=== PATIENT | male | born 1955 | race Caucasian/White ===

== ENCOUNTER 2019-11-10 05:40 | Day surgery (SDC) | payer OTHER, MEDICAID ==
[~2019-11-10] VITALS: Ht 182.9 cm; Wt 108.0 kg
[2019-11-10] MEDS ORDERED: NS IRRIG SOLN 1000 ML IR ONE (12:54)
[2019-11-10] MEDS ORDERED: NS 1000 ML IV.SOLN IV ONE (12:54)
[2019-11-10] MEDS ORDERED: PROPOFOL 200MG/ 20ML VIAL (DIPRIVAN) IV ONE (12:54)
[2019-11-10] MEDS ORDERED: BACITRACIN 1 GM OINT TP ONE (12:54)
[2019-11-10] MEDS ORDERED: LABETALOL 100 MG/ 20ML VIAL ONE (12:54)
[2019-11-10] MEDS ORDERED: HYDROmorphone 2 MG/ML VIAL ONE (12:54)
[2019-11-10] MEDS ORDERED: DESFLURANE 15 MIN GAS INH ONE (12:54)
[2019-11-10] MEDS ORDERED: MUPIROCIN 2% TOPICAL OINTMENT 22 GM ONE (12:54)
[2019-11-10] MEDS ORDERED: ONDANSETRON HCL 4 MG/2 ML VIAL ONE (12:54)
[2019-11-10] MEDS ORDERED: WATER FOR IRRIGATION,STERILE 1,000 ML IRRIG.SOLN IR ONE (12:54)
[2019-11-10] MEDS ORDERED: LR 1,000 ML IV.SOLN IV ONE (12:54)
[2019-11-10] MEDS ORDERED: LIDOCAINE/EPI 1% 1:100000 20 ML VIAL INJ ONE (12:54)
[2019-11-10] MEDS ORDERED: ROCURONIUM BROMIDE 10 MG/ML (ZEMURON) ONE (12:54)
[2019-11-10] MEDS ORDERED: SUCCINYLCHOLINE CHLORIDE 20 MG/ML(QUELICIN) ONE (12:54)
[2019-11-10] MEDS ORDERED: fentaNYL CITRATE/PF 100 MCG/2 ML AMP ONE (12:54)
[2019-11-10] MEDS ORDERED: ONDANSETRON HCL 4 MG/2 ML VIAL IVP PRN (13:00)
[2019-11-10] MEDS ORDERED: HYDROmorphone 1 MG INJ. 1 MG/ML AMPUL IVP PRN (13:00)
[2019-11-10] MEDS ORDERED: HYDROcodone/ACETAMIN 5-325 MG TAB (NORCO/ VICODIN) PO ONE (14:15)
[2019-11-10] MEDS ORDERED: HYDROcodone/ACETAMIN 5-325 MG TAB (NORCO/ VICODIN) ONE (14:28)
[2019-11-10 16:10] VITALS: BP_SYST 154
== END 2019-11-10 16:00 | disposition home or self-care (01) ==
LOC: SMU 05:40 → SDS 05:40 → SMU 07:58 → SDS 16:00
PROVIDERS: ATTEND Otolaryngology
DX: J33.0 Polyp of nasal cavity (principal); J30.1 Allergic rhinitis due to pollen; J32.8 Other chronic sinusitis; J33.8 Other polyp of sinus; J34.89 Other specified disorders of nose and nasal sinuses; I10 Essential (primary) hypertension; D38.5 Neoplasm of uncertain behavior of other respiratory organs; R09.82 Postnasal drip; R43.9 Unspecified disturbances of smell and taste; Z88.6 Allergy status to analgesic agent; E66.3 Overweight
CPT/HCPCS: 31237; 88305; J0330; J1170; J2405; J2704; J3010; J3490; J7030; J7120; 88311; C1726

== ENCOUNTER 2022-05-03 20:41 | Inpatient (IN) | payer MEDICARE, MEDICAID ==
[~2022-05-03] VITALS: Ht 182.9 cm; Wt 73.9 kg
[2022-05-03 20:45] VITALS: BP_SYST 126
--- NOTE | 2022-05-03 20:45 | NUR ---
Patient triaged and placed in the [facility]. VSS and patient appears in no acute distress at this time. Accompanied by EMS, awaiting available bed, and MD notified of need for MSE.
--- NOTE | 2022-05-03 20:46 | NUR ---
ER examining patient in the [address].
[2022-05-03 21:55] LABS: BASOPHILS # (AUTO) 0.1 K/uL (0.0-0.2); BASOPHILS % (AUTO) 0.3 % (0.0-2.0); EOSINOPHILS % (AUTO) 0.1 % (0.0-4.0); HEMATOCRIT 48.8 % (36-54); LYMPHOCYTES # (AUTO) 1.6 K/uL (1.0-5.5); LYMPHOCYTES % (AUTO) 6.4 % (20.5-51.5); MEAN CORPUSCULAR HEMOGLOBIN 30 pg (27-31); MEAN CORPUSCULAR HGB CONC 35 % (32-36); MEAN CORPUSCULAR VOLUME 87 fL (79.0-98.0); MONOCYTES # (AUTO) 1.8 K/uL (0.0-1.0); MONOCYTES % (AUTO) 7.3 % (1.7-9.3); NEUTROPHILS # (AUTO) 21.7 K/uL (1.8-7.7); NEUTROPHILS % (AUTO) 85.9 % (40.0-70.0); PLATELET COUNT (AUTO) 378 K/uL (130-430); RED BLOOD CELL COUNT(AUTO) 5.62 MIL/uL (4.2-6.2); RED CELL DISTRIBUTION WIDTH 14.4 % (9.0-15.0); WHITE BLOOD COUNT (AUTO) 25.2 K/uL (4.8-10.8)
[2022-05-03 22:07] LABS: ANION GAP 11 (5-15); CALCIUM 8.2 mg/dL (8.4-11.0); CHLORIDE 100 mmol/L (98-107); CREATININE 1.68 mg/dL (0.55-1.30); GLUCOSE 154 mg/dL (70-99); POTASSIUM 3.6 mmol/L (3.5-5.1); SODIUM SERUM 135 mmol/L (136-145); UREA NITROGEN, BLOOD 30 mg/dL (8-21)
[2022-05-03 22:09] LABS: GFR AFRICAN AMERICAN 52 mL/min (>90)
[2022-05-03 22:22] LABS: ALANINE AMINOTRANSFERASE 20 U/L (12-78); ALBUMIN 3.8 g/dL (3.4-4.8); ASPARTATE AMINOTRANSFERASE 17 U/L (10-37); TOTAL BILIRUBIN 0.9 mg/dL (0.0-1.0)
--- NOTE | 2022-05-03 22:28 | NUR ---
Placed in room 8 . Placed on satellite project site monitor, blood pressure machine and pulse oximeter. To gown for exam. Side rails up. Report given to Pablo CREWS.
--- NOTE | 2022-05-03 22:40 | NUR ---
[address]IR[address] Way at bedside examining patient.
[2022-05-03] MEDS ORDERED: PANTOPRAZOLE SODIUM 40 MG/VIAL (PROTONIX) IVP ONE (22:45)
[2022-05-03] MEDS ORDERED: MORPHINE 4 MG INJ. 4 MG/ML VIAL IVP ONE (22:45)
[2022-05-03] MEDS ORDERED: PROCHLORPERAZINE EDISYLATE 10 MG/2 ML VIAL IVP ONE (22:45)
[2022-05-04] MEDS ORDERED: VANCOMYCIN HCL 1,000 MG in NS 250 ML IV ONE ×2
[2022-05-04] MEDS ORDERED: PIPERACILLIN/TAZO 3.375 GM in NS 50 ML IV ONE ×2
[2022-05-04] MEDS ORDERED: PROCHLORPERAZINE EDISYLATE 10 MG/2 ML VIAL IVP ONE (00:45)
[2022-05-04] MEDS ORDERED: HYDROmorphone 1 MG/ML INJ. CARTRIDGE IVP ONE (00:45)
[2022-05-04] MEDS ORDERED: PIPERACILLIN/TAZOBACTAM 3.375 GM/VIAL (ZOSYN) IV ONE (01:04)
[2022-05-04] MEDS ORDERED: VANCOMYCIN HCL 1000 MG/VIAL IV ONE ×2 (01:29→01:31)
[2022-05-04 02:14] LABS: BILIRUBIN,URINE 1+ (NEGATIVE); CLARITY/URINE CLEAR (CLEAR); COLOR,URINE BROWN (YELLOW); GLUCOSE,URINE NEGATIVE (NEGATIVE); KETONES,URINE TRACE (NEGATIVE); LEUKOCYTE ESTERASE ,URINE NEGATIVE (NEGATIVE); NITRITE, URINE NEGATIVE (NEGATIVE); PROTEIN URINE 1+ (NEGATIVE); UROBILINOGEN,URINE 0.2 (0.2-1.0)
[2022-05-04 02:18] LABS: BLOOD, URINE TRACE (NEGATIVE)
[2022-05-04 02:56] LABS: BACTERIA,URINE FEW /HPF (None Seen)
[2022-05-04 02:57] LABS: MUCUS,URINE 2+ /LPF (None Seen)
[2022-05-04] MEDS ORDERED: PANTOPRAZOLE SODIUM 40 MG/VIAL (PROTONIX) IVP ONE (04:15)
[2022-05-04] MEDS ORDERED: MORPHINE 4 MG INJ. 4 MG/ML VIAL IVP PRN (04:15)
[2022-05-04] MEDS ORDERED: NACL 0.9% 1,000 ML IV ONE ×3 (04:15)
[2022-05-04] MEDS ORDERED: ONDANSETRON HCL 4 MG/2 ML VIAL IVP PRN (04:15)
--- NOTE | 2022-05-04 04:15 | NUR ---
Patient will be admitted to care of . Admitted to [TELE] unit. Diagnosis [SEPSIS] Inpatient (Yes or No) [Y] Observation (Yes or No) [N] Orientation concerns or request close to nursing station (Yes or No) [N] Covid Status [NEG] On vent or bipap [N] Isolation requirements [N] Needs a sitter [N] From Home (Yes or if No enter name of facility) [HOME] Requires Dialysis (Yes or No) [NO] Med Rec Completed (Yes of No) [NO]Admit bed requested
--- NOTE | 2022-05-04 07:15 | NUR ---
Report received from Pablo CREWS to assume care of patient.
[2022-05-04] MEDS ORDERED: NALOXONE HCL 0.4 MG/ML AMP (NARCAN) IVP PRN (07:30)
--- NOTE | 2022-05-04 07:40 | NUR ---
Pt alert and oriented upon face to face assessment. Reports no pain when asked. VSS on quality assurance monitor final. Pt asking to leave due to needing to handle personal business. Will reach out to admitting MD and continue to monitor closely.
[2022-05-04] MEDS ORDERED: PANTOPRAZOLE SODIUM 40 MG/VIAL (PROTONIX) ONE (07:49)
--- NOTE | 2022-05-04 08:00 | NUR ---
Dr Bates paged to inform that pt wants to leave.
[2022-05-04 08:11] VITALS: BP_SYST 122
--- NOTE | 2022-05-04 08:51 | NUR ---
Patient does not wish to proceed with medical care recommended by Dr Bates. Patient given information related to possible complications, up to and including , which could occur as a result of leaving hospital at this time. Patient verbalizes understanding of risks involved leaving against medical advice. Patient has signed AMA form.
--- NOTE | 2022-05-04 08:52 | NUR ---
New 20G SL to L AC removed prior to dc.
== END 2022-05-04 08:52 | disposition left against medical advice (07) | DRG 313 ==
LOC: SED 20:41 → STU 05-04 04:03
PROVIDERS: ADMIT Family Medicine; ATTEND Family Medicine
DX: R07.9 Chest pain, unspecified (principal); Z20.822 Contact with and (suspected) exposure to COVID-19; Z53.29 Procedure and treatment not carried out because of patient's decision for other reasons; Z88.6 Allergy status to analgesic agent; Z79.899 Other long term (current) drug therapy
CPT/HCPCS: 36415; 71045; 76376; 80053; 81000; 83605; 83690; 84484; 85025; 87040; 87086; 93005; 96365; 96366; 96367; 96375; 99285; C9113; G0378; J0780; J1170; J2270; J2543; J3370; J7030

== ENCOUNTER 2023-01-08 09:39 | Day surgery (SDC) | payer MEDICARE, MEDICAID ==
[~2023-01-08] VITALS: Ht 182.9 cm; Wt 128.0 kg
[2023-01-08] MEDS ORDERED: ROCURONIUM BROMIDE 10 MG/ML (ZEMURON) ONE (12:49)
[2023-01-08] MEDS ORDERED: LIDOCAINE 2%, 20 ML MDV ONE (12:49)
[2023-01-08] MEDS ORDERED: NS IRRIG SOLN 1000 ML IR ONE (12:49)
[2023-01-08] MEDS ORDERED: MUPIROCIN 2% TOPICAL OINTMENT 22 GM ONE (12:49)
[2023-01-08] MEDS ORDERED: PROPOFOL 200MG/ 20ML VIAL (DIPRIVAN) IV ONE (12:49)
[2023-01-08] MEDS ORDERED: NS 1000 ML IV.SOLN IV ONE (12:49)
[2023-01-08] MEDS ORDERED: MIDAZOLAM HCL 5 MG/5 ML VIAL ONE (12:49)
[2023-01-08] MEDS ORDERED: LIDOCAINE/EPI 1% 1:100000 20 ML VIAL ONE (12:49)
[2023-01-08] MEDS ORDERED: ONDANSETRON HCL 4 MG/2 ML VIAL ONE (12:49)
[2023-01-08] MEDS ORDERED: WATER FOR IRRIGATION,STERILE 1,000 ML IRRIG.SOLN IR ONE (12:49)
[2023-01-08] MEDS ORDERED: EPINEPHrine HCL 1 MG/ML VIAL ONE (12:49)
[2023-01-08] MEDS ORDERED: DEXAMETHASONE SOD PHOSPHATE 4 MG/ML VIAL ONE (12:49)
[2023-01-08] MEDS ORDERED: LR 1,000 ML IV.SOLN IV ONE (12:49)
[2023-01-08] MEDS ORDERED: DESFLURANE 15 MIN GAS INH ONE (12:49)
[2023-01-08] MEDS ORDERED: SUGAMMADEX SODIUM 200 MG/2 ML VIAL IV ONE (12:49)
[2023-01-08] MEDS ORDERED: fentaNYL CITRATE/PF 100 MCG/2 ML AMP ONE (12:49)
[2023-01-08] MEDS ORDERED: LABETALOL 100 MG/ 20ML VIAL IVP PRN (13:45)
[2023-01-08] MEDS ORDERED: LR 1,000 ML IV SCH (13:45)
[2023-01-08] MEDS ORDERED: hydrALAZINE HCL 20 MG/ML VIAL IVP PRN (13:45)
[2023-01-08] MEDS ORDERED: MEPERIDINE HCL/PF 25 MG/ML DISP.SYRIN IVP PRN (13:45)
[2023-01-08] MEDS ORDERED: METOCLOPRAMIDE HCL 10 MG/2 ML VIAL IVP PRN (13:45)
[2023-01-08] MEDS ORDERED: HYDROmorphone 1 MG/ML INJ. CARTRIDGE IVP PRN ×2 (13:45)
[2023-01-08] MEDS ORDERED: ACETAMINOPHEN I.V. 1000 MG 100 ML IV ONE (14:37)
[2023-01-08 18:06] VITALS: BP_SYST 146
== END 2023-01-08 18:00 | disposition home or self-care (01) ==
LOC: SOR 09:39 → SMU 09:41 → SOR 18:00
PROVIDERS: ATTEND Otolaryngology
DX: D38.5 Neoplasm of uncertain behavior of other respiratory organs (principal); J30.1 Allergic rhinitis due to pollen; J33.0 Polyp of nasal cavity; I10 Essential (primary) hypertension; E66.01 Morbid (severe) obesity due to excess calories; Z68.32 Body mass index [BMI] 32.0-32.9, adult; Z79.899 Other long term (current) drug therapy; Z20.822 Contact with and (suspected) exposure to COVID-19
CPT/HCPCS: 31253; 36415; 88305; 88311; 87426; 31256; 31287; J3490; J1100; J0171; J2001; J2250; J2405; J2704; J3010; J7120; J7030; C1726; J0131